=== PATIENT | male | born 1955 | race Caucasian/White ===

== ENCOUNTER → 2020-01-16 | Outpatient (CLI) | payer BC, OTHER | END | disposition home or self-care (01) | LOC: CFH 07:25 | PROVIDERS: ATTEND Family Medicine | DX: S01.91XA Laceration without foreign body of unspecified part of head, initial encounter (principal); T79.9XXA Unspecified early complication of trauma, initial encounter; X58.XXXA Exposure to other specified factors, initial encounter; Y93.89 Activity, other specified; Y92.89 Other specified places as the place of occurrence of the external cause; Y99.8 Other external cause status | CPT/HCPCS: 70450 ==